=== PATIENT | female | born 1935 | race Caucasian/White ===

== ENCOUNTER 2022-05-15 09:49 | Day surgery (SDC) | payer MEDICARE, OTHER ==
[~2022-05-15] VITALS: Ht 170.2 cm; Wt 66.1 kg
[2022-05-15 10:30] VITALS: BP 129/60
[2022-05-15] MEDS ORDERED: cefazolin/dext.iso 2gm/100ml 100 ML IV ONE (10:35)
[2022-05-15] MEDS ORDERED: vancomycin/NS 1 GM ADD-VANTAGE 250 ML X 1 DOSE IV ONE (10:40)
[2022-05-15] MEDS ORDERED: FURO20TA4 PO (11:03)
[2022-05-15] MEDS ORDERED: WARF-55 PO (11:03)
[2022-05-15] MEDS ORDERED: DIGO125T2 PO (11:03)
[2022-05-15] MEDS ORDERED: POTA8TAB69 PO (11:03)
[2022-05-15] MEDS ORDERED: ENOX60DI10 SQ (11:03)
[2022-05-15] MEDS ORDERED: ASPI81TA52 PO (11:03)
[2022-05-15 11:08] LABS: EOSINOPHILS % (AUTO) 0.9 % (0-6); HEMOGLOBIN 10.3 g/dl (12.0-16.0); MEAN CORPUSCULAR HEMOGLOBIN 37.2 PG (27.0-31.0); MONOCYTES # (AUTO) 0.2 X10'3 (0-0.9); RED BLOOD COUNT 2.76 X10'6 (4.20-5.60)
[2022-05-15 11:10] LABS: BASOPHILS % (AUTO) 0.9 % (0-1); HEMATOCRIT 31.2 % (35.0-45.0); LYMPHOCYTES # (AUTO) 1.2 X10'3 (1.1-4.8); LYMPHOCYTES % (AUTO) 43.5 % (21-51); MEAN CORPUSCULAR HGB CONC 32.9 g/dL (33.0-36.5); MEAN CORPUSCULAR VOLUME 112.9 FL (78-98); MEAN PLATELET VOLUME 7.8 FL (7.4-10.4); MONOCYTES % (AUTO) 8.4 % (2-12); NEUTROPHILS # (AUTO) 1.2 X10'3 (1.8-7.7); NEUTROPHILS % (AUTO) 46.3 % (42-75); PLATELET COUNT 111 X10'3 (140-440); RED CELL DISTRIBUTION WIDTH 14.3 % (11.5-14.5); WHITE BLOOD COUNT 2.7 X10'3 (4.5-11.0)
[2022-05-15 11:14] LABS: ALBUMIN 3.7 G/DL (3.4-5.0); ANION GAP 8 (8-16); BLOOD UREA NITROGEN 21 MG/DL (7-18); BUN/CREATININE RATIO 22.8 (6.6-38.0); CALCIUM 9.1 MG/DL (8.5-10.1); CHLORIDE 107 MMOL/L (99-107); CREATININE 0.92 MG/DL (0.40-0.90); MAGNESIUM 2.2 MG/DL (1.5-2.4); SODIUM 144 MMOL/L (135-145); TOTAL CARBON DIOXIDE 28.6 MMOL/L (24-32); eGFR 58 ML/MIN
[2022-05-15 11:17] LABS: GLUCOSE 89 MG/DL (70-104)
[2022-05-15 11:55] LABS: TOTAL CELLS COUNTED 100
[2022-05-15 11:56] LABS: ELLIPTOCYTES 1+; PLATELET ESTIMATE DECREASED; TEAR DROP CELLS 1+
[2022-05-15] MEDS ORDERED: fentaNYL/PF 50MCG/1 ML 2ML syringe ONE ×2 (13:07→13:57)
[2022-05-15] MEDS ORDERED: midazolam 1 mg/ML 2ml injection ONE (13:07)
[2022-05-15] MEDS ORDERED: vancomycin 1,000mg inj ONE (13:08)
[2022-05-15] MEDS ORDERED: LIDOCAINE 2%/EPI 1:100,000 inj. Multi-dose 20 ML VIAL ONE (13:08)
[2022-05-15] MEDS ORDERED: proCHLORperazine 10 MG/2 ml inj ONE (13:45)
[2022-05-15 14:50] VITALS: BP 121/48
[2022-05-15 15:05] VITALS: BP 123/53
[2022-05-15 15:20] VITALS: BP 112/60
[2022-05-15 15:35] VITALS: BP 110/50
== END 2022-05-15 16:00 | disposition home or self-care (01) ==
LOC: SSTAY O 09:49
PROVIDERS: ATTEND Internal Medicine Cardiovascular Disease
DX: Z45.010 Encounter for checking and testing of cardiac pacemaker pulse generator [battery] (principal); I34.0 Nonrheumatic mitral (valve) insufficiency; G47.30 Sleep apnea, unspecified; E78.5 Hyperlipidemia, unspecified; I48.19 Other persistent atrial fibrillation; Z79.01 Long term (current) use of anticoagulants; Z79.899 Other long term (current) drug therapy; Z79.82 Long term (current) use of aspirin; Z95.2 Presence of prosthetic heart valve; Z85.3 Personal history of malignant neoplasm of breast; Z85.72 Personal history of non-Hodgkin lymphomas; Z90.13 Acquired absence of bilateral breasts and nipples; Z98.51 Tubal ligation status; Z80.3 Family history of malignant neoplasm of breast; Z82.49 Family history of ischemic heart disease and other diseases of the circulatory system
CPT/HCPCS: 33228; 80048; 83735; 85025; 85610; 93005; 99152; C1785; C1894; J0690; J0780; J2250; J3010; J3370; J7030; 33227; 85007; 99153; A4565; A4620; A6258